=== PATIENT | male | born 1950 ===

== ENCOUNTER 2017-10-09 05:58 | Day surgery (SDC) | payer SELFPAY ==
[2017-09-29 10:29] VITALS: BMI 34.3
--- NOTE | 2017-10-09 07:24 | CP.SDSHP ---
Same Day Surgery H & P - History Proposed Procedure: Right knee arthroscopy, possible partial meniscectomy, chondroplasty, synovectomy Pre-Op Diagnosis: Right knee medial meniscal tear, chondromalacia patella - Previous Medical/Surgical History Comments: medical clearance on chart. 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 Patient counseled on the risks of addiction, physical or psychological dependence, and overdose associated with opioid drugs and the danger of taking opioid drugs with alcohol and other central nervous system depressants, and cautioned patient on storage and disposal. - Allergies Allergies: Allergies No Known Allergies Allergy (Verified 09/29/17 10:28) - Physical Exam Vital Signs: Vital Signs 10/09/17 06:07 Temperature 98.1 F Pulse Rate 58 L Respiratory 18 Rate Blood Pressure 163/78 H O2 Sat by Pulse 97 Oximetry Mental Status: Alert & Oriented x3 Heart: WNL Lungs: WNL GI: WNL - {Optional Preform as Required} Ortho: Other (calves soft NT neg homans, +ROM ankle/toes, sensation intact) Other Pertinent Findings: MRI on chart, reviewd - Impression Impression: 66M with right knee medial meniscal tear for arthroscopy Pt. Evaluated Today:Candidate for Anesthesia & Procedure: Yes - Date & Time Date: 10/09/17 Time: 07:40 Short Stay Discharge - Short Stay Discharge Admitting Diagnosis/Reason for Visit: OTH MENISCUS DERANGEMENTS, OTHER MEDIAL MENISCUS, Disposition: HOME/ ROUTINE Medications: oxyCODONE/Acetaminophen [Percocet 5/325 mg Tab] 1 ea PO Q4H PRN #20 tab PRN Reason: Pain, Moderate (4-7) Past Patient History - Past Medical History & Family History Past Medical History?: Yes Past Family History: Reviewed and not pertinent - Past Social History Smoking Status: Never Smoked - CARDIAC Hx Cardiac Disorders: No - PULMONARY Hx Respiratory Disorders: No - NEUROLOGICAL Hx Neurological Disorder: No - HEENT Hx HEENT Problems: No - RENAL Hx Chronic Kidney Disease: No - ENDOCRINE/METABOLIC Hx Endocrine Disorders: No - HEMATOLOGICAL/ONCOLOGICAL Hx Blood Disorders: No - INTEGUMENTARY Hx Dermatological Problems: No - MUSCULOSKELETAL/RHEUMATOLOGICAL Hx Musculoskeletal Disorders: Yes Other/Comment: MENISCAL TEAR - GASTROINTESTINAL Hx Gastrointestinal Disorders: Yes Hx Gall Bladder Disease: Yes - GENITOURINARY/GYNECOLOGICAL Hx Genitourinary Disorders: No - PSYCHIATRIC Hx Psychophysiologic Disorder: No - SURGICAL HISTORY Hx Surgeries: Yes Hx Appendectomy: Yes Hx Cholecystectomy: Yes - ANESTHESIA Hx Anesthesia: Yes Hx Anesthesia Reactions: No Hx Malignant Hyperthermia: No Has any member of the family had a problem w/ anesthesia?: No
[2017-10-09] MEDS ORDERED: Midazolam 2 MG/2 ML VIAL ONE (07:37)
[2017-10-09] MEDS ORDERED: Propofol 10 mg/ml Inj (20 ML) ONE (07:37)
[2017-10-09] MEDS ORDERED: Rocuronium 10 mg/ml (10 ml) ONE (07:40)
[2017-10-09] MEDS ORDERED: Lidocaine/Epinephrine 1% 1:100000 10 ML IJ ONE (07:45)
[2017-10-09] MEDS ORDERED: ceFAZolin IV 1 gm in Dextrose 1 GM/50 ML BAG IVPB ONE ×2 (07:45→07:53)
[2017-10-09] MEDS ORDERED: EPINEPHrine 1:1000 Nasal Sol(30mL) ONE (07:45)
[2017-10-09] MEDS ORDERED: ePHEDrine 50 mg/ml Inj ONE (08:10)
[2017-10-09] MEDS ORDERED: Oxycodone/Acetaminophen 5/325 mg Tab PO PRN (09:13)
--- NOTE | 2017-10-09 09:13 | PCM.SURG1 ---
Surgeon's Initial Post Op Note - Surgeon's Notes Surgeon: Susie Randhawa MD Autoglazier: Iram Stanley PA-C Type of Anesthesia: General LMA Anesthesia Administered By: Dr. Wong Pre-Operative Diagnosis: Right knee medial meniscal tear, chondromalacia patella Operative Findings: tourniquet not used Post-Operative Diagnosis: same. symptomatic plica Operation Performed: Right knee arthroscopic partial medial meniscectomy, synovectomy, resection of plica Specimen/Specimens Removed: none Estimated Blood Loss: EBL {In ML}: 5 Blood Products Given: N/A Drains Used: No Drains Post-Op Condition: Fair Date of Surgery/Procedure: 10/09/17 Time of Surgery/Procedure: 09:12
[2017-10-09] MEDS ORDERED: HYDROmorphone 0.5 mg/0.5 ml ISec IVP PRN (09:14)
[2017-10-09] MEDS ORDERED: Lactated Ringer's 500 ML IV ONE (10:40)
[2017-10-09 11:49] VITALS: BP 152/73; PULSE 65; RESP 15; TEMP 97.8; O2SAT 95
--- NOTE | 2017-10-09 19:13 | OP ---
PROCEDURE DATE: 10/09/2017 PREOPERATIVE DIAGNOSES: Right knee medial meniscal tear and patellar chondromalacia. POSTOPERATIVE DIAGNOSES: Right knee medial meniscal tear and patellar chondromalacia and medial plica. PROCEDURES: Right knee arthroscopy with medial meniscectomy and excision of plica. SURGEON: Drew Perez MD ASSISTED BY: Jigar Stanley PA-C. Ms. Stanley was scrubbed and present throughout the entire case and assisted in patient positioning and closure. ANESTHESIA: General. COMPLICATIONS: None. ESTIMATED BLOOD LOSS: 5 mL. INDICATIONS FOR PROCEDURE: This is a 66-year-old gentleman who presented with complaints of right knee pain and swelling. Clinical examination was consistent with medial joint line tenderness, positive Janelle's and effusion. MRI examination was consistent with a complex tear of the posterior horn of his medial meniscus and patellar chondromalacia. After a period of failed nonsurgical management, recommendations was for a right knee arthroscopy. The risks, benefits, and alternatives of the procedure were discussed with the patient and informed consent was obtained. OPERATIVE PROCEDURE: After the surgical site was finally verified in the preoperative holding area, the patient was taken to the operating room and placed supine on the operating room table. After administration of general anesthesia, the patient received 2 gm of Ancef IV. Tourniquet was placed about the right thigh. Care was taken to make sure all bony prominences and nerves were well padded and protected. A lateral post was placed about the right thigh and the right lower extremity was prepped and draped in the usual sterile fashion. The bony landmarks were identified about the right knee and the portal sites were injected with a total of 10 mL of 1% lidocaine with epi. An anterolateral arthroscopy portal was established and arthroscope was inserted into knee joint. Patellofemoral articulation was evaluated. The patient did have some grade 1 to grade 2 chondromalacia of the undersurface of the patella. The patella was noted to sit normally and track normally in the trochlea. The lateral gutter had suprapatellar recess were noted to be free of any loose bodies. The medial gutter was noted to have a plica. Through an anterior medial incision and using a full radio shaver, a plica was excised. Next, the medial compartment was evaluated. The medial meniscus was probed. The patient was noted to have a large complex tear of the posterior horn of the medial meniscus. The tear was noted to extensively extend all the way to the meniscocapsular junction. Using a combination of basket forceps and a full radius shaver, meniscectomy was performed resecting a too small, but stable rim leaving just a small amount of meniscal tissue right at the meniscocapsular junction. Remaining portion of the meniscus appeared to be stable. The chondral surface of the medial compartment had some grade 1 to grade 2 chondromalacia. Next, the intercondylar notch was evaluated. ACL was well visualized, probed and noted to have some intrasubstance tearing, but was otherwise noted to be stable and was performed and again the ACL was noted to be intact and stable. PCL was also visualized and appeared to be intact. Next, the lateral compartment was evaluated. Lateral meniscus was probed and was noted to be intact. The chondral surface of the lateral compartment was noted to have some grade 1 chondromalacia. Intraarticular portion of the popliteus tendon was well visualized and appeared to be intact. Satisfied, knee joint was irrigated through the arthroscopic cannula and all the instruments were removed. The portal sites were closed using interrupted 3-0 Vicryl suture and Dermabond for the skin. Sterile dressing was applied. The patient was awakened from the procedure and taken to recovery room in stable condition. Drew Perez MD
== END 2017-10-09 12:06 | disposition home or self-care (01) ==
LOC: C.SDS 05:58
PROVIDERS: ATTEND Orthopaedic Surgery
DX: M23.331 Other meniscus derangements, other medial meniscus, right knee (principal); M22.41 Chondromalacia patellae, right knee
CPT/HCPCS: 29881; 97116; 97161; G8978; G8979; G8980; J0690; J1170; J1885; J2001; J2250; J2405; J2704; J2765; J3010; J7120